=== PATIENT | female | born 1975 | race Caucasian/White ===

== ENCOUNTER → 2019-10-25 08:32 | Outpatient (CLI) | payer BC, SELFPAY ==
--- NOTE | 2019-10-25 | DI.US.S_ITS ---
PROCEDURE: US THYROID INDICATIONS: NONTOXIC SINGLE THYROID NODULE TECHNIQUE: Real-time scanning was performed of the thyroid gland, with image documentation. COMPARISON: [facility], US, THYROID, 10/03/2013, 11:05. FINDINGS: Right: Thyroid lobe measures 1.7 x 1.9 x 5.7 cm, and is homogeneous in echotexture. Left: Thyroid lobe measures 1.7 x 2.0 x 6.1 cm, and is homogenous in echotexture. Isthmus: 3 mm thick. Nodule number: 1 Location: Upper right thyroid lobe Size: Currently 0.9 x 1.1 x 1.6 cm, previously 1.3 x 0.6 x 0.9 cm, no significant change. Composition: Solid Echogenicity: Hypoechoic Shape: Wider than tall Margins: Smoothly marginated, bilobed. Echogenic foci: No definite echogenic foci. Total points: 4 ACR TI-RADS category: TI-RADS 4, low to moderate suspicion, given small size continued followup is recommended at yearly intervals for a total of 5 years. Nodule number: 2 Location: Middle third right thyroid lobe Size: Currently 1.1 x 0.9 x 0.9 cm, previously 0.9 x 0.6 x 0.8 cm, no significant change. Composition: Solid Echogenicity: Hypoechoic Shape: Wider than tall Margins: Smooth Echogenic foci: Macrocalcification Total points: 5 ACR TI-RADS category: TI-RADS category 4, low to moderate suspicion, and given small size continued followup by ultrasound at yearly intervals for a total of 5 years is recommended. Nodule number: 3 Location: Lower two thirds of the left thyroid lobe Size: Currently 2.5 x 1.2 x 2.8 cm, previously 2.2 x 1.4 x 2.5 cm, no significant change in size.. Composition: Solid Echogenicity: Hypoechoic Shape: Wider than tall Margins: Smooth Echogenic foci: Macrocalcification Total points: 5 ACR TI-RADS category: BI-RADS category 4, moderate suspicion, previously biopsied. IMPRESSION: The 3 thyroid nodules have been previously present, and have not significantly changed from the comparison study in September of 2013. The largest structure is at the lower two thirds of the left thyroid lobe, and reportedly has been previously biopsied. Repeat biopsy of that nodule could be obtained if clinically desired but given absence of significant change coordinator time a clinical judgment as to need for repeat biopsy or any additional followup is warranted. Please note that the PACS record available at [facility] does not indicate that the reported prior biopsy was performed here. Dictated by: Alli James M.D. on 10/26/2019 at 6:04 Approved by: Alli James M.D. on 10/26/2019 at 6:35
== END ==
PROVIDERS: Referring Provider Physician Assistant Medical; Visit Provider Physician Assistant Medical
DX: E04.2 Nontoxic multinodular goiter (principal)
CPT/HCPCS: 76536

== ENCOUNTER → 2019-11-24 16:12 | Outpatient (CLI) | payer BC, SELFPAY ==
[2019-11-25 09:24] LABS: COVID19 Sendout Not Detected (Not Detect)
== END ==
PROVIDERS: Visit Provider Physician Assistant
DX: Z01.812 Encounter for preprocedural laboratory examination (principal)
CPT/HCPCS: 87635

== ENCOUNTER 2019-11-27 07:01 | Day surgery (SDC) | payer BC, SELFPAY ==
[2019-11-27] VITALS (7 sets, daily range): BP systolic 119–134; BP diastolic 82–92; PULSE 68–92; RESP 12–20; TEMP 36–36.6; O2SAT 97–100; BMI 28.8
--- NOTE | 2019-11-27 | PATH_ITS ---
[facility] Accession Number: [id number] . 01 Material submitted: . esophagus - ESOPHAGUS . 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 Negative for dysplasia or malignancy. [facility] 11/28/2019 1045 Local . 02 Comment: The histologic findings would be consistent with Pascual's esophagus in the appropriate endoscopic setting. . 02 Electronically signed: . Lj Moya MD, PhD, Pathologist NPI- [id number] . 01 Gross description: . ESOPHAGUS: Received in formalin are 3 fragment(s) of hollis, soft tissue measuring 0.1 x 0.1 x 0.1 cm to 0.2 x 0.1 x 0.1 cm submitted entirely in 1 cassette(s) /BRIAN 11/27/20192049 Local . 02 Pathologist provided ICD-10: K22.70 . 02 CPT . 455533 Performed at: 01 [facility] [address], [place], [place] [id number] MD Papito Sue MD Phone: [phone] Performed at: 02 [facility] [address] [place], [place] [id number] MD Kassy Basurto MD Phone: [phone]
--- NOTE | 2019-11-27 07:22 | PM.PREOP ---
Pre-operative Note COVID-19 COVID-19 status: Negative Result date/Date tested (Pos, Neg/Pending): 11/24/19 Interval Note History & Physical reviewed/Exam performed by Physician: Yes Changes to H&P: No ASA Class (for procedural sedation): II
[2019-11-27] MEDS: LACTATED RINGERS 1,000 ML 200 ML IV (07:30)
--- NOTE | 2019-11-27 08:21 | PM.OP.ENDO ---
Operative Date/Time/Diagnoses Date of procedure: 11/27/19 Time of procedure: 08:21 Pre-op diagnosis: Dysphagia, blood per rectum Post-op diagnosis: same Procedure & Clinicians Study performed: Esophagoduodenoscopy, colonoscopy Same procedure as scheduled: Yes Indications: This is a 44-year-old woman who presented with complaint of new onset dysphagia with solid food and intermittent bright red blood per rectum. Surgeon: Rajesh Goldberg Procedure Notes SCOAP/Timeout: Performed Procedure in detail: Patient placed in left lateral decubitus position. Time out was performed. Procedural sedation was administered with Versed and Fentanyl. A bite block was placed. the scope was inserted into the mouth and advanced through the esophagus and into the stomach. The pylorus was intubated and the duodenum was normal. The scope was retroflexed within the stomach and there was no hiatal hernia. No ulcers, or gastritis. The scope was withdrawn into the esophagus the Z line was seen at 35 cm from the incisions. There was no coe's masses or strictures. There was mild esophagitis in the distal esophagus and 4 random biopsies of the Z line were taken with forceps. Hemostasis was observed. Stomach was desufflated and scope removed. Patient tolerated procedure well. Patient placed in left lateral decubitus position. Time out was performed. Procedural sedation was administered with Versed and Fentanyl. A rectal exam demonstrated no external hemorrhoids no internal masses. Colonoscopy scope was placed into the rectum and advanced through the colon to the cecum. The ileocecal valve was identified. The scope was then slowly withdrawn examining colon thoroughly in all directions. The colonoscopy was notable for the following 1. No masses polyps 2. Grade 1 internal hemorrhoids 3. Quality of prep excellent 4. Tortuous sigmoid colon Scope withdrawal time: 6 Sedation minutes: 30 Findings: internal hemorrhoids and other findings (Esophagitis) Specimen(s): other (Distal esophagus) Complications: none Impression: Esophagitis, internal hemorrhoids Post-procedure Recommendations: Reflux diet and Start medication(s) (Omeprazole 20 mg daily) Disposition: same day surgery
[2019-11-27] MEDS: LIDOCAINE 4% SOLN 50 ML 20 ML TOP (08:22)
[2019-11-27] MEDS: MIDAZOLAM 5 MG/5 ML VIAL IV (08:23)
[2019-11-27] MEDS: fentaNYL 250 MCG/5 ML INJ IV (08:24)
== END 2019-11-27 09:01 | disposition home or self-care (01) ==
PROVIDERS: PCP Physician Assistant Medical; Referring Provider Surgery; Visit Provider Surgery
PROC: 0DJ08ZZ Inspection of Upper Intestinal Tract, Via Natural or Artificial Opening Endoscopic (ICD-10-PCS; CPT 43235; principal; 2019-11-27 07:45)
PROC: 0DJD8ZZ Inspection of Lower Intestinal Tract, Via Natural or Artificial Opening Endoscopic (ICD-10-PCS; CPT 45378; 2019-11-27 07:45)
DX: K20.9 Esophagitis, unspecified (principal); K64.0 First degree hemorrhoids
CPT/HCPCS: 43239; 45378; 99152; 99153; J2250; J3010

== ENCOUNTER 2022-06-13 22:18 | Observation (INO) | payer BC, SELFPAY ==
[2022-06-13 22:29] VITALS: BP 132/90; PULSE 79; RESP 17; TEMP 36.6; O2SAT 98; BMI 31.2
--- NOTE | 2022-06-13 22:56 | DI.CT.S_ITS ---
PROCEDURE: CT ABDOMEN PELVIS W CON INDICATIONS: Perineal injury after falling on object TECHNIQUE: After the administration of oral and IV contrast, axial sections were acquired from the lung bases to the pubic symphysis. Coronal and sagittal reformats were performed. For radiation dose reduction, the following was used: automated exposure control, adjustment of mA and/or kV according to patient size. COMPARISON: None. FINDINGS: Image quality: Excellent. Lung bases: Unremarkable. Heart: No significant findings. ABDOMEN: Liver: There is a 1.5 cm cyst seen within the right inferior liver. The liver demonstrates normal size and demonstrates no suspicious lesions. Gallbladder: Unremarkable. Biliary ducts: Unremarkable. Pancreas: Unremarkable. Spleen: Unremarkable. Adrenal Glands: Unremarkable. Kidneys and Ureters: Unremarkable. Stomach and Bowel: Stomach, small bowel loops, and colon are unremarkable. A normal appendix is incidentally noted. Peritoneum: No abnormal intraperitoneal fluid. No free air. Ventral Wall: No hernia. Abdominal Nodes: No retroperitoneal or mesenteric adenopathy by size criteria. Vessels: Aorta and inferior vena cava are normal in size. PELVIS: Pelvic Organs: Unremarkable. Bladder: Unremarkable. Pelvic Nodes: No enlarged lymph nodes. Miscellaneous: No inguinal hernias are seen. Soft tissue irregularity with inflammatory stranding can be seen involving perineum. There is a blush of contrast seen near the posterior aspect of the introitus, anterior to the rectum, as on series 2, image 82 and on series 4, image 48. There is fluid seen within the vagina itself, outlining the cervix. Bones: Unremarkable. IMPRESSION: Perineal injury seen, with soft tissue irregularity and inflammatory change. There is a blush of contrast seen within the perineum, which is highly suggestive active bleeding at the time of this study. Fluid is seen within the vagina. No hilda intraperitoneal injury is identified. Dictated by: Dane Hunt M.D. on 06/13/2022 at 22:18 Approved by: Dane Hunt M.D. on 06/13/2022 at 22:22
--- NOTE | 2022-06-13 22:56 | ED.GENADULT ---
HPI - General Adult General Chief complaint: Urogenital-Female Stated complaint: Fall Time Seen by Provider: 06/13/22 22:32 Source: patient, family () and EMS Mode of arrival: EMS Limitations: no limitations History of Present Illness HPI narrative: Patient is a 47-year-old female who is brought in by EMS for evaluation of injuries that she sustained when she states that she was trying to step over a chair that had fallen over when she tripped and fell and the leg of the chair hit her in the perineal area and also in the vagina. She did have bleeding afterwards. Did rip the pants that she was wearing. There was no other injuries from the event. She is not on blood thinners. EMS was called and brought her to the emergency department for evaluation. Related Data Home Medications Medication Instructions Recorded Confirmed clonazepam 1 mg tablet 1 mg PO DAILY 11/27/19 06/13/22 desvenlafaxine succinate 50 mg 50 mg PO DAILY 06/13/22 06/13/22 tablet,extended release 24 hr gabapentin 300 mg capsule 300 mg PO DAILY 06/13/22 06/13/22 lamotrigine 200 mg tablet See Rx Instructions .Route .COMPLEX 06/13/22 06/13/22 topiramate 100 mg tablet (Topamax) 100 mg PO DAILY 06/13/22 06/13/22 Previous Rx's Medication Instructions Recorded omeprazole magnesium 20 mg 20 mg PO DAILY #60 tabs 11/27/19 tablet,delayed release Allergies Allergy/AdvReac Type Severity Reaction Status Date / Time No Known Drug Allergies Allergy Verified 06/13/22 22:37 Review of Systems Constitutional Constitutional: Reports system reviewed and no additional complaints, except as documented Gastrointestinal Gastrointestinal: Reports system reviewed and no additional complaints, except as documented Genitourinary Genitourinary: Reports system reviewed and no additional complaints, except as documented Integumentary/Breasts Skin/Breast: Reports system reviewed and no additional complaints, except as documented Psychiatric Psychiatric: Reports system reviewed and no additional complaints, except as documented Hematologic/Lymphatic On Anticoagulants: No Patient History Medical History Bipolar 2 disorder GERD (gastroesophageal reflux disease) Thyroid nodule Surgical History (Updated 06/14/22 @ 01:52 by Shirlene Teresa MD) [place] teeth extracted Social History household members: spouse and children Smoking Status: Current every day smoker alcohol intake: current Smoking Status: Current every day smoker alcohol intake frequency: holidays/special occasions only Substance Use Type: does not use Exam Initial Vital Signs Initial Vital Signs: Vital Signs Temperature 98 F 06/13/22 22:29 Pulse Rate 79 06/13/22 22:29 Respiratory Rate 17 06/13/22 22:29 Blood Pressure 132/90 06/13/22 22:29 Pulse Oximetry 98 06/13/22 22:29 Oxygen Delivery Method 06/13/22 22:29 [facility] Head: normal to inspection Resp Effort & Inspection: normal respiratory effort Cardio Rate: regular rate GI Inspection: normal to inspection and non-distended Other: Externally there is a contusion on the left upper inner thigh/left labia/perineal area. There is no crepitus in this area. Internally the patient does have a laceration on the posterior aspect of the vagina. There is oozing from the area. Cervix is unremarkable. Skin Other: Contusion to the left upper inner thigh. No active bleeding. Neuro General: patient alert, patient awake, patient oriented x3 and moves all extremities Extrem General: normal to inspection and capillary refill normal Procedures Laceration Repair Laceration 1: Site: vulva/vagina Size (cm): 3 Description: irregular Depth: simple, single layer Local Anesthetic: lidocaine 2% Amount of anesthesia used (mL): 2 Skin layer closed with: other (Chromic) Skin layer suture size: 4-0 Number of sutures: 1 Technique: running Course Orders Ordered: ED Orders 06/13/22 22:56 CT abdomen pelvis w con Stat 06/13/22 23:00 Basic Metabolic Panel Stat Complete Blood Count AUTO DIFF Stat 06/14/22 01:23 COVID19 -Nasal RAPID/Pre-Proc Stat Sodium Chloride (Normal Saline 0.9%) 1,000 mls @ 125 mls/hr IV CONT SHAHEEN Last Admin: 06/14/22 01:47 Dose: 125 mls/hr Documented By: ISAÍAS Lactated Ringer's (Lactated Ringers) 1,000 mls @ 100 mls/hr IV CONT SHAHEEN Cefazolin Sodium/Dextrose (Ancef) 100 mls @ 200 mls/hr IV NOW ONE Stop: 06/14/22 02:25 Discontinued Medications Lidocaine HCl (Lidocaine Jelly 2% 5 Ml) 1 applic TOP NOW ONE Stop: 06/13/22 23:22 Last Admin: 06/14/22 00:39 Dose: 1 applic Documented By: ISAÍAS Lidocaine HCl (Lidocaine 2% (Pf) 2 Ml) 2 ml INJ INTRA-OP ONE Stop: 06/13/22 23:22 Last Admin: 06/14/22 00:39 Dose: 2 ml Documented By: ISAÍAS Lidocaine HCl (Lidocaine 2% Inj Sdv) 0.5 ml TOP INTRA-OP ONE Stop: 06/14/22 00:49 Last Admin: 06/14/22 00:59 Dose: Not Given Documented By: ISAÍAS Lidocaine HCl (Lidocaine Jelly 2% 5 Ml) 1 applic TOP NOW ONE Stop: 06/14/22 00:51 Vital Signs Vital signs: Vital Signs - 8 hr 06/13/22 22:29 06/14/22 00:22 06/14/22 00:23 Temperature 98 F Pulse Rate 79 68 67 Respiratory Rate 17 Blood Pressure 132/90 Pulse Oximetry 98 100 100 Oxygen Delivery Method Room Air 06/14/22 00:23 06/14/22 00:30 06/14/22 00:55 Temperature Pulse Rate 66 Respiratory Rate Blood Pressure 117/62 105/56 L Pulse Oximetry 100 Oxygen Delivery Method 06/14/22 00:55 06/14/22 01:00 06/14/22 01:00 Temperature Pulse Rate 76 76 Respiratory Rate Blood Pressure 100/59 L Pulse Oximetry 100 100 Oxygen Delivery Method 06/14/22 01:22 06/14/22 01:22 Temperature Pulse Rate 85 Respiratory Rate Blood Pressure 101/64 Pulse Oximetry 99 Oxygen Delivery Method Medical Decision Making Lab Data Lab results reviewed: Yes I reviewed the patient's lab results. Result diagrams: 06/14/22 01:40 06/13/22 23:00 Labs: Lab Results 06/13/22 06/13/22 Range/Units 23:00 23:00 WBC 9.7 (4.5-11.0) X10^3/uL RBC 4.42 (4.0-5.2) X10^6/uL Hgb 9.6 L (12.0-16.0) g/dL Hct 29.6 L (36-46) % MCV 66.8 L (80-100) fL MCH 21.7 L (26-34) PG MCHC 32.6 (30-36) % RDW 18.1 H (11.6-14.8) % Plt Count 343 (150-400) X10^3/uL Neut % (Auto) 60.9 (50-75) % Lymph % (Auto) 26.7 (25-40) % [place] % (Auto) 8.1 (3-14) % Eos % (Auto) 3.7 (2-4) % Baso % (Auto) 0.6 (0-2) % Neut # (Auto) 5900 (9116-1441) /uL Lymph # (Auto) 2600 (1281-7724) /uL [place] # (Auto) 800 (0-900) /uL Eos # (Auto) 400 (0-450) /uL Baso # (Auto) 100 (0-100) /uL Sodium 139 (137-145) mmol/L Potassium 3.3 L (3.4-5.1) mmol/L Chloride 108 H (98-107) mmol/L Carbon Dioxide 21 L (22-32) mmol/L BUN 6 L (7-17) mg/dL Creatinine 0.94 (0.52-1.04) mg/dL Estimated GFR > 60 (>60) mL/min BUN/Creatinine Ratio 6.4 (6-22) Glucose 100 (70-100) mg/dL Calcium 8.9 (8.4-10.2) mg/dL Imaging Data CT scan - abdomen/pelvis: Radiologist's Impression: [place] [address] CT Scan Report Signed Patient: Natacha Timmons MR#: [id number] : 1975 Acct:[id number] Age/Sex: 47 / F Date of Service: 06/13/22 Loc: ED Accession Number: [id number] ?? Procedure: CT abdomen pelvis w con Ordering Provider: Jose Bloom D.O. PROCEDURE:? CT ABDOMEN PELVIS W CON ? INDICATIONS:? Perineal injury after falling on object ? TECHNIQUE:? After the administration of oral and IV contrast, axial sections were acquired from the lung bases to the pubic symphysis.? Coronal and sagittal reformats were performed.? For radiation dose reduction, the following was used:? automated exposure control, adjustment of mA and/or kV according to patient size. ? COMPARISON:? None. ? FINDINGS:? Image quality:? Excellent.? ? Lung bases:? Unremarkable.? ? Heart:? No significant findings. ? ? ABDOMEN: Liver:? There is a 1.5 cm cyst seen within the right inferior liver.? The liver demonstrates normal size and demonstrates no suspicious lesions. Gallbladder:? Unremarkable.? ? Biliary ducts:? Unremarkable.? ? Pancreas:? Unremarkable.? ? Spleen:? Unremarkable.? ? Adrenal Glands:? Unremarkable.? ? Kidneys and Ureters:? Unremarkable.? ? ? Stomach and Bowel:? Stomach, small bowel loops, and colon are unremarkable.? A normal appendix is incidentally noted.? Peritoneum:? No abnormal intraperitoneal fluid.? No free air.? ? Ventral Wall: ? No hernia.? Abdominal Nodes:? No retroperitoneal or mesenteric adenopathy by size criteria.? Vessels:? Aorta and inferior vena cava are normal in size.? ? PELVIS: Pelvic Organs:? Unremarkable.? ? Bladder:? Unremarkable.? ? Pelvic Nodes: No enlarged lymph nodes.? Miscellaneous: No inguinal hernias are seen.? ? Soft tissue irregularity with inflammatory stranding can be seen involving perineum.? There is a blush of contrast seen near the posterior aspect of the introitus, anterior to the rectum, as on series 2, image 82 and on series 4, image 48.? There is fluid seen within the vagina itself, outlining the cervix. ? Bones:? Unremarkable.? IMPRESSION:? ? Perineal injury seen, with soft tissue irregularity and inflammatory change.? There is a blush of contrast seen within the perineum, which is highly suggestive active bleeding at the time of this study. ? Fluid is seen within the vagina. ? No hilda intraperitoneal injury is identified. ? ? Dictated by: Dane Hunt M.D. on 06/13/2022 at 22:18 ? ? Approved by: Dane Hunt M.D. on 06/13/2022 at 22:22? MDM Narrative Medical decision making narrative: CT scan shows contusion but also active bleeding from the laceration in the vagina. There are no other injuries noted from the event. Exam performed with nursing at bedside. Attempted to close the vaginal laceration with a running stitch however this was unsuccessful and the patient was still having quite a bit of oozing. We then tried Gelfoam without any improvement. Tried packing the vagina with gauze and using pressure and still no improvement in the oozing. I did discuss the case with on-call for supervisor wet end who is a family medicine provider who recommended that I contact the OB provider. I then discussed the case with Dr. Teresa on-call for multimedia designer who will come to the emergency department and take the patient to the operating room for an exam under anesthesia and repair. There were 2 gauze 4 x 4 that were packed into the vagina. Admitting provider made aware of this. Patient and for also made aware of the need for supervisor wet end involvement. They expressed understanding and agreement. Discharge Plan Departure Patient Disposition: Admitted to Surgery Clinical Impression: Vaginal laceration Admit Date/Time: 06/14/22 01:22 Admit Provider: Shirlene Teresa
--- NOTE | 2022-06-13 23:08 | PC.NURSE ---
Assessment performed with Dr. Bloom at bedside. 20cc dark blood discharge in depends, patient has [id number] blood clot in vagina. Patient has laceration to left labia, about 2-3cm in length. Bleeding controlled with pressure. Has bruising around laceration and to left groin area.
[2022-06-13 23:12] LABS: Add Manual Diff / Slide Review SLIDE REVIEW; Basophils Absolute Auto 100 /uL (0-100); Basophils Percent Auto 0.6 % (0-2); Eosinophils Absolute Auto 400 /uL (0-450); Eosinophils Percent Auto 3.7 % (2-4); Hematocrit 29.6 % (36-46); Hemoglobin 9.6 g/dL (12.0-16.0); Lymphocytes Absolute Auto 2600 /uL (1100-4500); Lymphocytes Percent Auto 26.7 % (25-40); Mean Corpuscular HGB Conc 32.6 % (30-36); Mean Corpuscular Hemoglobin 21.7 PG (26-34); Mean Corpuscular Volume 66.8 fL (80-100); Monocytes Absolute Auto 800 /uL (0-900); Monocytes Percent Auto 8.1 % (3-14); Neutrophils Absolute Auto 5900 /uL (1500-7000); Neutrophils Percent Auto 60.9 % (50-75); Platelet Count 343 X10^3/uL (150-400); Red Blood Cell Count 4.42 X10^6/uL (4.0-5.2); Red Cell Distribution Width 18.1 % (11.6-14.8); White Blood Cell Count 9.7 X10^3/uL (4.5-11.0)
[2022-06-13 23:22] LABS: BUN Creatinine Ratio 6.4 (6-22); Blood Urea Nitrogen 6 mg/dL (7-17); Calcium 8.9 mg/dL (8.4-10.2); Carbon Dioxide 21 mmol/L (22-32); Chloride 108 mmol/L (98-107); Estimated Glomerular Filt Rate > 60 mL/min (>60); Glucose 100 mg/dL (70-100); HEMOLYSIS < 15 (0-50); Potassium 3.3 mmol/L (3.4-5.1); Sodium 139 mmol/L (137-145)
[2022-06-14] VITALS (14 sets, daily range): BP systolic 98–123; BP diastolic 31–83; PULSE 66–100; RESP 15–18; TEMP 36.6–36.7; O2SAT 95–100; BMI 31.2
[2022-06-14] MEDS: LIDOCAINE JELLY 2% 5 ML 1 APPLIC TOP (00:39)
[2022-06-14] MEDS: LIDOCAINE 2% INJ (00:39)
[2022-06-14] MEDS: SODIUM CHLORIDE 0.9% 1,000 ML 125 ML IV (01:47)
--- NOTE | 2022-06-14 01:50 | PM.HP.1 ---
History of Present Illness History of Present Illness Date Patient Seen: 06/14/22 Time Patient Seen: 01:50 Chief complaint: Fall Narrative: Patient is a 47-year-old 2 para 2 who presented to the emergency department via ambulance after tripping over a chair and having the leg hit her perineum and into the vagina. She had some brisk vaginal bleeding. An attempt was made in the emergency department by ED physician to repair the laceration, but there was continued oozing after placing chromic sutures. Patient History Medical History (Updated 06/14/22 @ 01:19 by Jose Bloom DO) Bipolar 2 disorder GERD (gastroesophageal reflux disease) Thyroid nodule Surgical History (Updated 06/14/22 @ 01:52 by Shirlene Teresa MD) [place] teeth extracted Family & Social History Social History: household members spouse,children Safety & Behavioral: Feels Safe in Current Yes Environment Been Physically Hurt or No Threatened By a Person Tobacco & Substance use: Tobacco type cigarettes Smoking Status Current every day smoker alcohol intake current alcohol intake frequency holiday/special occasion Substance Use Type does not use Meds Home Medications and Allergies Home Medications Medication Instructions Recorded Confirmed Type clonazepam 1 mg tablet 1 mg PO DAILY 11/27/19 06/13/22 History omeprazole magnesium 20 mg 20 mg PO DAILY #60 tabs 11/27/19 Rx tablet,delayed release desvenlafaxine succinate 50 mg 50 mg PO DAILY 06/13/22 06/13/22 History tablet,extended release 24 hr gabapentin 300 mg capsule 300 mg PO DAILY 06/13/22 06/13/22 History lamotrigine 200 mg tablet See Rx Instructions .Route .COMPLEX 06/13/22 06/13/22 History topiramate 100 mg tablet (Topamax) 100 mg PO DAILY 06/13/22 06/13/22 History Allergies Allergy/AdvReac Type Severity Reaction Status Date / Time No Known Drug Allergies Allergy Verified 06/13/22 22:37 Exam Vital Signs (past 8 hours): - 06/13/22 22:29 06/14/22 00:22 06/14/22 00:23 Temperature 98 F Pulse Rate 79 68 67 Respiratory Rate 17 Blood Pressure 132/90 Pulse Oximetry 98 100 100 Oxygen Delivery Method Room Air 06/14/22 00:23 06/14/22 00:30 06/14/22 00:55 Temperature Pulse Rate 66 Respiratory Rate Blood Pressure 117/62 105/56 L Pulse Oximetry 100 Oxygen Delivery Method 06/14/22 00:55 06/14/22 01:00 06/14/22 01:00 Temperature Pulse Rate 76 76 Respiratory Rate Blood Pressure 100/59 L Pulse Oximetry 100 100 Oxygen Delivery Method 06/14/22 01:22 06/14/22 01:22 Temperature Pulse Rate 85 Respiratory Rate Blood Pressure 101/64 Pulse Oximetry 99 Oxygen Delivery Method Oxygen Delivery Method Room Air Narrative Exam Narrative: Generally: Patient lying on gurney, no acute distress Lungs: Clear to auscultation bilaterally Cardiovascular: Regular rate and rhythm Abdomen: No scars. No masses. No guarding or rebound tenderness. External genitalia: Upper thigh and perineum with bruising. Vagina: Exam deferred to OR due to tenderness CT scan: No air in the abdomen. Inflammation of the perineum and vagina. Some fluid seen in the vagina. Objective Labs Result Diagrams: 06/13/22 23:00 06/13/22 23:00 Labs: Laboratory Results - last 24 hr 06/13/22 06/13/22 23:00 23:00 WBC 9.7 RBC 4.42 Hgb 9.6 L Hct 29.6 L MCV 66.8 L MCH 21.7 L MCHC 32.6 RDW 18.1 H Plt Count 343 Neut % (Auto) 60.9 Lymph % (Auto) 26.7 [place] % (Auto) 8.1 Eos % (Auto) 3.7 Baso % (Auto) 0.6 Neut # (Auto) 5900 Lymph # (Auto) 2600 [place] # (Auto) 800 Eos # (Auto) 400 Baso # (Auto) 100 Sodium 139 Potassium 3.3 L Chloride 108 H Carbon Dioxide 21 L BUN 6 L Creatinine 0.94 Estimated GFR > 60 BUN/Creatinine Ratio 6.4 Glucose 100 Calcium 8.9 Assessment & Plan Assessment & Plan narrative: Assessment: 47-year-old 2 para 2 who tripped over a chair and impaled her vagina with the leg of the chair Continued oozing despite attempted repair in the emergency department Plan: Examination under anesthesia Repair of vaginal laceration The risks, benefits, and alternatives to the procedure were explained to the patient. The risks including bleeding and infection. She understands these risks and agrees to proceed. A full par Q was held and consent form was signed. COVID-19 COVID-19 status: Negative Result date/Date tested (Pos, Neg/Pending): 06/14/22 Time Spent With Patient Time with patient: less than 30 minutes Critical Care time: I spent a total of [] minutes of critical care time on this patient's care today; this time is exclusive of procedural time.
[2022-06-14 01:52] LABS: COVID19 -Nasal RAPID Negative (Negative)
[2022-06-14 01:56] LABS: Hemoglobin 8.5 g/dL (12.0-16.0)
--- NOTE | 2022-06-14 02:09 | PM.PREOP ---
Pre-operative Note COVID-19 COVID-19 status: Negative Result date/Date tested (Pos, Neg/Pending): 06/14/22 Criteria for continued procedure: Non-surgical alternatives not available or appropriate per current SOC Interval Note History & Physical reviewed/Exam performed by Physician: Yes Changes to H&P: No H&P completed within 30 days and has changed as indicated here:: 06/14/22
[2022-06-14] MEDS: LACTATED RINGERS 1,000 ML 100 ML IV (02:20)
[2022-06-14 02:30] LABS: Anisocytosis 2+; Hypochromasia 1+; Microcytosis 1+
[2022-06-14] MEDS: CEFAZOLIN 2 GM/100 ML PREMIX 100 ML IV (02:30)
--- NOTE | 2022-06-14 02:49 | SUR.OPER ---
Lithotomy on padded OR bed, head on pillow, arms secured on padded arm boards at <90 degrees abduction. Legs secured in padded yellow fins stirrups.
--- NOTE | 2022-06-14 03:03 | P.OP_ITS ---
Operative Date/Time/Diagnoses Date of procedure: 06/14/22 Time of procedure: 03:03 Pre-op diagnosis: Trauma to vagina and perineum Post-op diagnosis: same Procedure & Clinicians Procedure: Procedures Operation Date: 06/14/22 02:30 <No data on this case meets the specified criteria> Indications: Continued bleeding despite sutures in the ER Trauma to vagina and perineum Surgeon: Shirlene Teresa Anesthesia Type: General Operative Notes Findings: 10 cm laceration to the midline vagina extending down onto the perineum Arterial bleeder proximally 2 cm into the vagina Closure Type: primary Specimen(s): none Estimated blood loss (mL): 10 Blood products transfused: none Procedure in detail: After informed consent was obtained, the patient was taken to the operating room where she was placed in the dorsal supine position. After adequate LMA general anesthesia was achieved, she was placed in the dorsal lithotomy position. Proximally 500 cc of blood clot came out of the vagina after the patient was induced. She was then prepped and draped in the usual sterile fashion. A time- out was performed. The bladder was emptied of 400 cc of clear yellow urine. An examination under anesthesia was performed which revealed a 10 cm vaginal laceration which extended onto the perineum. There was an arterial bleeder approximately 2 cm into the vagina. The vagina was irrigated with 300 cc of sterile water. A deep layer in the vagina was placed using 2 0 chromic. The vagina was then closed with 2-0 Vicryl in a running interlocking fashion. The perineum was closed with 2 0 chromic in a running fashion. Hemostasis was achieved. The vagina was irrigated again with 180 cc of sterile water. Sponge, lap, and instrument counts were correct x2. The patient tolerated the procedure well, and was taken to PACU in stable condition. Complications: none Post-operative Condition: stable Disposition: PACU Plan for aftercare: Home after recovery
== END 2022-06-14 04:00 | disposition home or self-care (01) ==
LOC: ED 06-14 01:19 → AC 06-14 01:23
PROVIDERS: Admitting Provider Obstetrics & Gynecology; Emergency Provider Emergency Medicine; PCP Physician Assistant Medical; Visit Provider Obstetrics & Gynecology
PROC: (CPT 57210; principal; 2022-06-14 02:30)
DX: S31.41XA Laceration without foreign body of vagina and vulva, initial encounter (principal); W18.09XA Striking against other object with subsequent fall, initial encounter; Z20.822 Contact with and (suspected) exposure to COVID-19
CPT/HCPCS: 57210; 12002; 36415; 74177; 80048; 85014; 85018; 85025; 86850; 86900; 86901; 87635; 99284; C9803; G0378; J0690; J1100; J2250; J2405; J2704; J3010; Q9967

== ENCOUNTER 2022-10-06 12:52 | Day surgery (SDC) | payer BC, SELFPAY ==
--- NOTE | 2022-10-06 | PATH_ITS ---
[facility] Accession Number: [id number] No. of containers..01 Tissue . 01 Material submitted: . esophagus - ESOPHAGUS BIOPSIES . 01 Diagnosis: Esophagus, Biopsies: Squamous mucosa with active inflammation and invasive pseudohyphae, consistent with Hodan esophagitis. Negative for dysplasia and malignancy. V 10/08/2022 1721 Local . 01 Electronically signed: . Kassy Basurto MD, Pathologist NPI- [id number] . 01 Gross description: . ESOPHAGUS BIOPSIES: Received in formalin are 4 fragment(s) of hollis, soft tissue measuring 0.1 x 0.1 x 0.1 cm to 0.2 x 0.1 x 0.1 cm submitted entirely in 1 cassette(s) /BRIAN 10/07/2022 1919 Local . 01 Pathologist provided ICD-10: R10.13, B37.81 . 01 CPT . 951004 Specimen Comment: A courtesy copy of this report has been sent to [phone] Performed at: 01 [facility] [address] [place] [address], [place], [place] [id number] MD Papito Sue MD Phone: [phone]
[2022-10-06 13:53] VITALS: BP 105/70; PULSE 84; RESP 18; TEMP 36.4; O2SAT 100; BMI 28.3
[2022-10-06] MEDS: LACTATED RINGERS 1,000 ML 200 ML IV (14:05)
--- NOTE | 2022-10-06 14:25 | SUR.PREOP ---
NEG PRE TEST. LOT # [id number] EXP 2023-11-12
--- NOTE | 2022-10-06 14:30 | PM.PREOP ---
Pre-operative Note Interval Note History & Physical reviewed/Exam performed by Physician: Yes Changes to H&P: No
[2022-10-06 15:03] VITALS: PULSE 78; RESP 16; TEMP 36.4; O2SAT 98
--- NOTE | 2022-10-06 15:05 | PM.OP.EGD ---
Operative Date/Time/Diagnoses Date of procedure: 10/06/22 Time of procedure: 15:05 Pre-op diagnosis: Esophageal dysphagia Post-op diagnosis: other (Esophageal thrush) Procedure & Clinicians Study performed: Esophagoduodenoscopy Same procedure as scheduled: Yes Indications: Esophageal dysphagia Surgeon: Rajesh Goldberg Procedure Notes Procedure in detail: The history and physical was performed/updated and the patient is ASA class is 3. The procedure was discussed in detail with the patient. Potential risks complications including infection, bleeding, missed diagnosis, perforation, need for surgery, and were explained. Their questions were answered and informed consent was obtained. Patient placed in left lateral decubitus position. Time out was performed. Procedural sedation was administered by Anesthesia. A bite block was placed. the scope was inserted into the mouth the soft vagus was notable for white plaques material along the length of the esophagus. Some of these were small punctate lesions and others were linear plaques. There were no esophageal masses or strictures. There appearance was consistent with esophageal thrush. Biopsies were performed with forceps. The stomach was intubated and was without inflammation or ulcers.. The pylorus was intubated and the duodenum was normal to the 2nd portion. Stomach was desufflated and scope removed. The patient tolerated the procedure well and will be discharged when they meet criteria. Specimen(s): other (Esophageal biopsy) Impression: Esophageal thrush Post-procedure Plan for aftercare: Fluconazole Will notify with biopsy results Disposition: same day surgery
[2022-10-06 15:08] VITALS: BP 104/47; PULSE 74; RESP 14; TEMP 36.6; O2SAT 97
[2022-10-06 15:15] VITALS: BP 105/55; PULSE 71; RESP 18; TEMP 37.1; O2SAT 97
[2022-10-06 15:17] VITALS: BP 104/56; PULSE 70; RESP 20; TEMP 37.1; O2SAT 98
== END 2022-10-06 15:27 | disposition home or self-care (01) ==
PROVIDERS: PCP Physician Assistant Medical; Referring Provider Surgery; Visit Provider Surgery
PROC: 0DJ08ZZ Inspection of Upper Intestinal Tract, Via Natural or Artificial Opening Endoscopic (ICD-10-PCS; CPT 43235; principal; 2022-10-06 14:15)
DX: B37.81 Candidal esophagitis (principal)
CPT/HCPCS: 43239; J2250; J3010

== ENCOUNTER 2023-04-20 13:46 | Day surgery (SDC) | payer BC, SELFPAY ==
--- NOTE | 2023-04-20 | PATH_ITS ---
[facility] Accession Number: [id number] No. of containers..02 Tissue . 01 Material submitted: . PART A: gastrointestinal site - GASTRIC BIOPSIES PART B: esophagus - ESOPHAGEAL BIOPSIES . 01 Diagnosis: A. STOMACH, BIOPSIES: - OXYNTIC GASTRIC MUCOSA WITH UNREMARKABLE HISTOLOGY. - NO H. PYLORI LIKE ORGANISMS IDENTIFIED (ON THE H/E-STAINED SECTIONS). - NEGATIVE FOR GASTRITIS, INTESTINAL METAPLASIA, DYSPLASIA OR MALIGNANCY. -- B. ESOPHAGUS, BIOSPIES: - MICHAEL ESOPHAGITIS. - ADDITIONAL LARGER FRAGMENT OF SQUAMOUS EPITHELIUM WITH NO INCREASED INTRAEPITHELIAL EOSINOPHILS. - NEGATIVE FOR DYSPLASIA OR MALIGNANCY. - SEE COMMENT. -- GMS special stain is performed on part B with appropriate controls and shows fungal elements (hyphae and yeasts) in one fragment with reactive squamous epithelium and acute inflammation, morphologically most consistent with michael species. Technical Note: The immunohistochemical stains reported were [facility] ([address], [facility] [address]). They were developed and their performance characteristics determined by [employer] They have not been cleared or approved by the U.S. Food and Drug Administration, although such approval is not required for analyte-specific reagents of this type. TXN 04/29/2023 1453 Local . 01 Electronically signed: . Tawjaylon Mcneil MD, Pathologist NPI- [id number] . 01 Gross description: . Part A: GASTRIC BIOPSIES: Received in formalin is 1 fragment(s) of hollis, soft tissue measuring 0.4 x 0.2 x 0.2 cm submitted entirely in 1 cassette(s) Part B: ESOPHAGEAL BIOPSIES: Received in formalin are 2 fragment(s) of hollis, soft tissue measuring 0.1 x 0.1 x 0.1 cm to 0.3 x 0.3 x 0.1 cm submitted entirely in 1 cassette(s) /BRIAN 04/21/2023 1906 Local . 01 Pathologist provided ICD-10: B37.81 . 01 CPT . 620742, 509842, 986740 Specimen Comment: A courtesy copy of this report has been sent to [phone] Performed at: 01 [facility] [address] [place] [address], [place], [place] [id number] MD Papito Sue MD Phone: [phone]
[2023-04-20 14:05] VITALS: BMI 26.2
[2023-04-20 14:09] VITALS: BP 111/62; PULSE 72; RESP 18; TEMP 36.4; O2SAT 100
[2023-04-20] MEDS: LACTATED RINGERS 1,000 ML 42 ML IV (14:22)
--- NOTE | 2023-04-20 14:59 | P.HP_ITS ---
History of Present Illness History of Present Illness Date Patient Seen: 04/20/23 Time Patient Seen: 14:59 Chief complaint: EGD Narrative: 48-year-old woman with a history of esophageal thrush here for diagnostic EGD. She has recurrent esophageal dysphagia similar to last time when she was found to have thrush on EGD. Described as throat pain, difficulty swallowing and that food become stuck in the upper esophagus. COUNTS INCLUDE 234 BEDS AT THE [facility] Medical History Bipolar 2 disorder GERD (gastroesophageal reflux disease) Thyroid nodule Surgical History [place] teeth extracted Social History marital status: household members: spouse lives independently: Yes occupational status: employed Smoking Status: Current every day smoker alcohol intake: former substance use type: does not use Meds Home Medications and Allergies Home Medications Medication Instructions Recorded Confirmed Type clonazepam 1 mg tablet 1 mg PO DAILY 11/27/19 04/20/23 History desvenlafaxine succinate 50 mg 150 mg PO DAILY 06/13/22 04/20/23 History tablet,extended release 24 hr lamotrigine 200 mg tablet See Rx Instructions .Route .COMPLEX 06/13/22 04/20/23 History gabapentin 300 mg capsule 300 mg PO DAILY 10/06/22 04/20/23 History omeprazole 40 mg capsule,delayed 40 mg PO BID 10/06/22 04/20/23 History release Allergies Allergy/AdvReac Type Severity Reaction Status Date / Time No Known Drug Allergies Allergy Verified 04/20/23 14:02 Exam Vital Signs (past 8 hours): - 04/20/23 14:09 Temperature 97.5 F L Pulse Rate 72 Respiratory Rate 18 Blood Pressure 111/62 Pulse Oximetry 100 Oxygen Delivery Method Room Air Oxygen Delivery Method Room Air Narrative Exam Narrative: General adult woman alert oriented no acute distress Chest nonlabored respiration Extremities warm well perfused Assessment & Plan Assessment and plan (1) Dysphagia: Qualifiers: Dysphagia type: esophageal phase Qualified Code(s): R13.19 - Other dysphagia Status: Acute Assessment & Plan narrative: 48-year-old woman history of esophageal thrush here with recurrent esophageal dysphagia. Plan is for diagnostic esophagoduodenoscopy. Overview of the procedure was discussed. Procedural risks including hemorrhage, intestinal injury discussed. Questions have been answered she is in agreement with this plan.
[2023-04-20 15:28] VITALS: BP 116/72; PULSE 85; RESP 16; TEMP 36.8; O2SAT 100
[2023-04-20] MEDS: ALBUTEROL/IPRATROPIUM 3 ML AMPUL INH (15:28)
--- NOTE | 2023-04-20 15:31 | PM.OP.EGD ---
Operative Date/Time/Diagnoses Date of procedure: 04/20/23 Time of procedure: 15:31 Pre-op diagnosis: Esophageal dysphagia Post-op diagnosis: other (Gastritis) Procedure & Clinicians Study performed: Esophagoduodenoscopy Same procedure as scheduled: Yes Indications: History of esophageal candidiasis here with esophageal dysphagia. Surgeon: Rajesh Goldberg Procedure Notes Procedure in detail: The history and physical was performed/updated and the patient is ASA class is 2. The procedure was discussed in detail with the patient. Potential risks complications including infection, bleeding, missed diagnosis, perforation, need for surgery, and were explained. Their questions were answered and informed consent was obtained. Patient placed in left lateral decubitus position. Time out was performed. Procedural sedation was administered by Anesthesia. A bite block was placed. the scope was inserted into the mouth and advanced through the esophagus and into the stomach. The pylorus was intubated and the duodenum was examined to the 2nd portion. The scope was then withdrawn into the stomach and was retroflexed. Hill grade 2 hiatal hernia observed. The stomach was decompressed and scope was withdrawn slowly through the esophagus. FINDINGS -Esophagus without narrowing, masses or esophagitis. A biopsy of the esophagus was performed with forceps. -Diffuse gastritis. Multiple biopsies of the stomach were performed with forceps. No distinct actively bleeding ulcer. -hiatal hernia The patient tolerated the procedure well and will be discharged when they meet criteria. Specimen(s): other (Gastric, esophagus) Impression: Gastritis Post-procedure Recommendations: Start medication(s) (Carafate) Plan for aftercare: Tobacco is causing your gastritis. You must do your best to quit. Disposition: same day surgery
[2023-04-20 15:33] VITALS: BP 88/57; PULSE 81; RESP 14; O2SAT 100
[2023-04-20 15:40] VITALS: BP 89/43; PULSE 74; RESP 17; O2SAT 100
[2023-04-20 15:44] VITALS: BP 95/59; PULSE 81; RESP 15; TEMP 36.9; O2SAT 100
== END 2023-04-20 15:59 | disposition home or self-care (01) ==
PROVIDERS: PCP Physician Assistant Medical; Referring Provider Surgery; Visit Provider Surgery
PROC: 0DJ08ZZ Inspection of Upper Intestinal Tract, Via Natural or Artificial Opening Endoscopic (ICD-10-PCS; CPT 43235; principal; 2023-04-20 15:00)
DX: R13.10 Dysphagia, unspecified (principal); K29.60 Other gastritis without bleeding; K44.9 Diaphragmatic hernia without obstruction or gangrene; B37.81 Candidal esophagitis
CPT/HCPCS: 43239